=== PATIENT | male | born 1950 | race Two or more races ===

== ENCOUNTER 2016-09-05 16:50 | Inpatient (IN) | payer OTHER, MEDICARE ==
[~2016-09-05 16:50] MED LIST: ASPIRIN 325 MG TAB PO SCH
[2016-09-05] MEDS ORDERED: NS 1,000 ML IV ONE ×2 (17:02)
[2016-09-05] MEDS ORDERED: ADENOSINE 6 MG/2 ML SYR IV ONE ×2 (17:02)
[2016-09-05] MEDS ORDERED: SODIUM CHLORIDE 0.9% 3 ML FLUSH FLUSH PRN (17:02)
--- NOTE | 2016-09-05 17:11 | EDPRACDOC ---
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 UPON ARRIVAL TO ED PT'S HEART RATE WAS 181. WHEN I ENTERED THE ROOM PT'S HEART RATE WAS 100BPM, STATES IS FEELING SOME BETTER. Symptoms Started: Reports: Suddenly Relevant History: Reports: None Heart Rate (bpm): 181 Pulse is: Rapid Worsens with: Reports: Nothing Associated signs & symptoms: Reports: Chest pain (WARM SENSATION), Dyspnea, Other (LIGHTHEADED) Chest Pain Location: Reports: Substernal, Right Chest Pain Quality: Reports: Other (WARM SENSATION) Pain Radiation: Reports: None <Jeremy Barahona - Last Filed: 09/05/16 17:44> <Kalyan Alvarez - Last Filed: 09/05/16 18:04> - General Information Stated Complaint: CHEST PAIN Time Seen by Provider: 09/05/16 17:00 Allergies/Adverse Reactions: Allergies Allergy/AdvReac Type Severity Reaction Status Date / Time No Known Allergies Allergy Verified 09/05/16 17:03 ED Past Medical History - History Reviewed Yes Nurses notes reviewed and agree except as marked Travel Outside of [place] in the Last 3 Months?: No - Patient Medical History Cardiac History: Reports: Hypertension - Social Medical History ETOH: None Substance Abuse: None Lives With: Other Lives In: Home <Jeremy Barahona - Last Filed: 09/05/16 17:44> EDM Review of Systems - Review of Systems ROS Negative Except as Marked: Yes All systems reviewed and were negative except as marked Constitutional: No Symptoms Reported. negative: Fever, Chills, Weakness, Fatigue, Loss of Appetite Eyes: No Symptoms Reported. negative: Redness, Blurred Vision, Double Vision, Discharge, Pain, Light Sensitive, Photophobia Ears: No Symptoms Reported. negative: Pain, Hearing Loss, Drainage, Ear Pulling Throat: No Symptoms Reported. negative: Pain, Swelling Nose: No Symptoms Reported. negative: Congestion, Bleeding, Discharge, Injection, Swelling, Deformity, Ecchymosis, Tender, Abrasion, Laceration Mouth: No Symptoms Reported. negative: Pain, Drooling Respiratory: Shortness of Breath. negative: Barky Cough, Brassy Cough, Cough, Hemoptysis, Wheezing Cardiovascular: Chest Pain (WARM SENSATION), Palpitations. negative: Cyanosis, Edema, Orthopnea, PND, Syncope, Skin Mottling Gastrointestinal: No Symptoms Reported. negative: Pain, Constipation, Nausea, Vomiting, Diarrhea, Melena, Formula Intolerance Genitourinary: No Symptoms Reported. negative: Dysuria, Hematuria, Frequency, Discharge, Bleeding, Testicular Pain, Neurological: No Symptoms Reported. negative: Headache, Dizziness, Seizure, Numbness, Weakness, Speech Difficulty, Gait Difficulty Musculoskeletal: No Symptoms Reported. negative: Neck, Chestwall, Ribs, Back, Shoulder, Arm, Elbow, Forearm, Wrist, Hand, Pelvis, Hip, Femur, Knee, Leg, Ankle , Foot Integumentary: No Symptoms Reported. negative: Itching, Rash, Bruising, Wound Allergic/Immunologic: No Symptoms Reported. negative: Hives, Itching Hematologic: No Symptoms Reported. negative: Lymphadenopathy, Easy Bruising, Easy Bleeding Endocrine: No Symptoms Reported. negative: Weight Gain, Weight Loss Psychiatric: No Symptoms Reported. negative: Anxiety, Depression, Hallucinations, Insomnia, Suicidal <Jeremy Barahona - Last Filed: 09/05/16 17:44> - Physical Exam Constitutional: No apparent distress, Alert (Awake) Oriented to: Time, Person, Place Last recorded Vital Signs: Last Vital Signs Temp 98.2 F 09/05/16 16:59 Pulse 110 09/05/16 16:59 Resp 20 09/05/16 16:59 BP 178/86 09/05/16 16:59 Pulse Ox 96 09/05/16 16:59 Oxygen Pulse Oxygen Saturation 96 O2 Device Room Air Oxygen Flow Rate Fraction of Inspired Oxygen ( FIO2) - HEENT Head: Normal ( normocephalic) Eye Exam: Normal (PERRL, EOMI, Sclera white) Oropharynx: Normal (Pharynx:Moist without exudate,Gums-no swelling) Tympanic Membrane: Normal ENT EAC: Normal TMJ: Normal Nose: No Symptoms Reported (septum midline) Neck: Normal (FROM, trachea at midline) - Respiratory/Cardiovascular Respiratory: Normal - CTA (BBS clear to auscultation without adventitious sounds ) Cardiovascular: Tachycardia (112 MANUAL CHECK AT BEDSIDE) Respiratory/Cardiovascular Comment: SVT RESOLVED AT THIS TIME - GI Auscultation: Normal (NABS) Palpation: Normal (Soft,No rebound or guarding, non distended) Tenderness: Non tender Simon's Sign: Negative - Bladder: Normal - Musculoskeletal Back: Normal (Non-Tender) Extremities: Normal (Normal tone, Pulses 2+ No cyanosis or edema, FROM) - Integumentary Skin: Normal, Warm, Dry Lymphatics: Normal (no adenopathy) - Neurologic Memory Impaired: Normal Motor Function: Normal (Normal tone, Pulses 2+ No cyanosis or edema, FROM) Cranial Nerve: Normal (CN II-X11 intact sensation, strength 5/5) Cerebellar: Normal Mood Description: Normal Perception: Normal <Jeremy Barahona - Last Filed: 09/05/16 17:44> - Physical Exam Last recorded Vital Signs: Last Vital Signs Temp 98.2 F 09/05/16 16:59 Pulse 100 09/05/16 18:00 Resp 21 09/05/16 18:00 BP 140/82 09/05/16 18:00 Pulse Ox 95 09/05/16 18:00 Oxygen Pulse Oxygen Saturation 95 O2 Device Room Air Oxygen Flow Rate Fraction of Inspired Oxygen ( FIO2) <Kalyan Alvarez - Last Filed: 09/05/16 18:04> - Differential Diagnosis Atrial fibrillation, Atrial flutter, PSVT, Sinus tachycardia, WPW, Electrolyte disorder, Hyperthyroidism - Results 09/05/16 17:07 09/05/16 17:07 - EKG EKG #1 Initial EKG Time: 16:56 -: Yes EKG interpreted by me Rate: bpm: 181 [place]: Normal Rhythm: PSVT Block: None Hypertrophy: None ST: Normal EKG #2 Initial EKG Time: 17:24 -: Yes EKG interpreted by me Rate: bpm: 100 [place]: Normal Rhythm: NSR Block: None Hypertrophy: None ST: Normal - Diagnostic Imaging CXR Image interpreted by: Radiologist IMPRESSION: Low volume film without acute cardiopulmonary findings. <Jeremy Barahona - Last Filed: 09/05/16 17:44> - Results 09/05/16 17:07 09/05/16 17:07 WBC 8.7 xk/uL (3.8-10.8) 09/05/16 17:07 RBC 4.84 xM/uL (4.70-6.10) 09/05/16 17:07 Hgb 16.2 g/dL (14.0-18.0) 09/05/16 17:07 Hct 46.3 % (42-52) 09/05/16 17:07 MCV 96 fL (80-94) H 09/05/16 17:07 MCH 33.5 pg (27-32) H 09/05/16 17:07 MCHC 35.0 g/dl (33-36) 09/05/16 17:07 RDW 12.9 % (11.5-14.5) 09/05/16 17:07 Plt Count 218 xk/uL (130-400) 09/05/16 17:07 MPV 7.5 fL (7.4-10.4) 09/05/16 17:07 PT 9.8 SEC (9.2-11.2) 09/05/16 17:07 INR 1.0 09/05/16 17:07 APTT 25.9 SEC (22-35) 09/05/16 17:07 Sodium 140 mEq/L (137-146) 09/05/16 17:07 Potassium 3.5 mEq/L (3.5-5.1) 09/05/16 17:07 Chloride 101 mEq/L (98-107) 09/05/16 17:07 Carbon Dioxide 27 mMOL/L (22-33) 09/05/16 17:07 Anion Gap 16 mEq/L (8-16) 09/05/16 17:07 BUN 16 MG/DL (9-20) 09/05/16 17:07 Creatinine 0.90 MG/DL (0.66-1.25) 09/05/16 17:07 Estimated GFR (MDRD) > 60 mL/min (>=60) 09/05/16 17:07 Glucose 113 MG/DL (70-99) H 09/05/16 17:07 Calculated Osmolality 271 MOs/Kg (270-290) 09/05/16 17:07 Calcium 9.0 MG/DL (8.4-10.2) 09/05/16 17:07 Total Bilirubin 0.6 MG/DL (0.2-1.3) 09/05/16 17:07 AST 45 IU/L (17-59) 09/05/16 17:07 ALT 43 IU/L (21-72) 09/05/16 17:07 Alkaline Phosphatase 118 IU/L (50-160) 09/05/16 17:07 Troponin I < 0.01 ng/mL (<.04) 09/05/16 17:07 Sjx-F-Uyfdrjppbcu Pept 68 pg/mL (0-900) 09/05/16 17:07 Total Protein 8.3 G/DL (6.3-8.2) H 09/05/16 17:07 Albumin 4.6 G/DL (3.5-5.0) 09/05/16 17:07 Urine Color Yellow 09/05/16 17:13 Urine Clarity Clear 09/05/16 17:13 Urine pH 6.0 (5.0-8.0) 09/05/16 17:13 Ur Specific [place] 1.015 (1.003-1.035) 09/05/16 17:13 Urine Protein 2+ (NEG/TRACE) H 09/05/16 17:13 Urine Glucose (UA) Neg (NEGATIVE) 09/05/16 17:13 Urine Ketones Neg (NEGATIVE) 09/05/16 17:13 Urine Occult Blood Neg (NEG/TRACE) 09/05/16 17:13 Urine Nitrite Neg (NEGATIVE) 09/05/16 17:13 Urine Bilirubin Neg (NEGATIVE) 09/05/16 17:13 Urine Urobilinogen <2.0 MG/DL (0-1) 09/05/16 17:13 Ur Leukocyte Esterase Neg (NEGATIVE) 09/05/16 17:13 Urine RBC 0-2 (0-2) 09/05/16 17:13 Urine WBC 0-2 (0-2) 09/05/16 17:13 Urine Bacteria Few (NEG/FEW) 09/05/16 17:13 Hyaline Casts 5-10 (0-2) H 09/05/16 17:13 Urine Mucus Occ (NEG/OCC) 09/05/16 17:13 Lab Results 09/05/16 09/05/16 09/05/16 17:13 17:07 17:07 WBC 8.7 RBC 4.84 Hgb 16.2 Hct 46.3 MCV 96 H MCH 33.5 H MCHC 35.0 RDW 12.9 Plt Count 218 MPV 7.5 PT 9.8 INR 1.0 APTT 25.9 Sodium Potassium Chloride Carbon Dioxide Anion Gap BUN Creatinine Estimated GFR (MDRD) Glucose Calculated Osmolality Calcium Total Bilirubin AST ALT Alkaline Phosphatase Troponin I Bjw-[id number]-Ocwwxlqwktf Pept Total Protein Albumin Urine Color Yellow Urine Clarity Clear Urine pH 6.0 Ur Specific [place] 1.015 Urine Protein 2+ H Urine Glucose (UA) Neg Urine Ketones Neg Urine Occult Blood Neg Urine Nitrite Neg Urine Bilirubin Neg Urine Urobilinogen <2.0 Ur Leukocyte Esterase Neg Urine RBC 0-2 Urine WBC 0-2 Urine Bacteria Few Hyaline Casts 5-10 H Urine Mucus Occ 09/05/16 17:07 WBC RBC Hgb Hct MCV MCH MCHC RDW Plt Count MPV PT INR APTT Sodium 140 Potassium 3.5 Chloride 101 Carbon Dioxide 27 Anion Gap 16 BUN 16 Creatinine 0.90 Estimated GFR (MDRD) > 60 Glucose 113 H Calculated Osmolality 271 Calcium 9.0 Total Bilirubin 0.6 AST 45 ALT 43 Alkaline Phosphatase 118 Troponin I < 0.01 Vot-O-Blwbirkhtke Pept 68 Total Protein 8.3 H Albumin 4.6 Urine Color Urine Clarity Urine pH Ur Specific [place] Urine Protein Urine Glucose (UA) Urine Ketones Urine Occult Blood Urine Nitrite Urine Bilirubin Urine Urobilinogen Ur Leukocyte Esterase Urine RBC Urine WBC Urine Bacteria Hyaline Casts Urine Mucus <Kalyan Alvarez - Last Filed: 09/05/16 18:04> <Jeremy Barahona - Last Filed: 09/05/16 17:44> - Departure Yes I personally saw and evaluated the patient. 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
[2016-09-05 17:26] LABS: MPV 7.5 fL (7.4-10.4)
[2016-09-05 17:28] LABS: LEUKOCYTES/URINE NEG (NEGATIVE); NITRITE/URINE NEG (NEGATIVE); RBC/URINE 0-2 (0-2); URINE OCCULT BLOOD NEG (NEG/TRACE); WBC/URINE 0-2 (0-2)
--- NOTE | 2016-09-05 17:28 | DIRPT ---
CLINICAL DATA: Chest pain and shortness of breath. EXAM: PORTABLE CHEST 1 VIEW COMPARISON: None. FINDINGS: 1715 hours. Low volume film. The lungs are clear wiithout focal pneumonia, edema, pneumothorax or pleural effusion. Cardiopericardial silhouette is at upper limits of normal for size. The visualized bony structures of the thorax are intact. Telemetry leads overlie the chest. IMPRESSION: Low volume film without acute cardiopulmonary findings. Electronically Signed By: Gurpreet Barber M.D. On: 09/05/2016 17:26
[2016-09-05 17:32] LABS: BLOOD UREA NITROGEN 16 MG/DL (9-20); CALCULATED OSMOLALITY 271 MOs/Kg (270-290); CHLORIDE 101 mEq/L (98-107); GLUCOSE 113 MG/DL (70-99); PARTIAL THROMB. TIME 25.9 SEC (22-35); SODIUM LEVEL 140 mEq/L (137-146); TOTAL PROTEIN 8.3 G/DL (6.3-8.2)
[2016-09-05] MEDS ORDERED: ASPIRIN 325 MG TAB PO ONE (17:44)
[2016-09-05] MEDS: LABETALOL 20 MG/4 ML SYRINGE IV ONE ×2 (17:49→17:53)
[2016-09-05 18:02] LABS: hTSH 1.57 uIU/mL (0.5-4.67)
[2016-09-05 18:08] LABS: SEG NEUTROPHIL 41 % (45-76)
[2016-09-05 18:09] LABS: TOTAL CELL COUNT 100
[2016-09-05] MEDS: SODIUM CHLORIDE 0.9% 3 ML FLUSH FLUSH SCH (18:30)
--- NOTE | 2016-09-05 19:28 | HISTPHYS ---
- Chief Complaint Chest pain - History of Present Illness PRIMARY CARE PROVIDER: Dr. Ana Maria Hoyt HPI: The patient is a 66-year-old man with hypertension who presents with acute chest pain. Had a similar episode 15 days ago but did not go to the doctor or hospital. Onset: Today around noon. Duration: intermittent. Location: right upper chest. Radiation: none. Character: 8/10. Heaviness. Alleviated by: Nothing. Exacerbated by: Nothing. Associated Symptoms: Shortness of breath. Diaphoresis. Palpitations - felt like heart was racing. Whenever he is lying down, his neck and back hurt, is a chronic issue. Has abdominal pain in RLQ that is chronic for 2 years; has had it investigated but nothing was found. No nausea, vomiting, diarrhea, constipation, or bloody stool. Treatments: none at home except usual medication. - Medical History Cardiac History: Reports: Hypertension GI/ History: Reports: [facility] GI Yes/No Other (Chronic abdominal pain of unknown etiology.) Psychological History: Denies: Depression - Surgical History Reports: Other (No surgery.) - Medictions/Allergies Allergies No Known Allergies Allergy (Verified 09/05/16 17:03) Current Medication List: Reviewed Home Medications Valsartan/Hydrochlorothiazide [Valsartan-Hctz 320-25 mg Tab] 1 each PO DAILY 09/21 - Family History Reports: Other (Parents and grandparents of unknown causes. No other family history.). Denies: Cardiac Disorders - Social History Travel Outside of [place] in the Last 3 Months?: No Smoking Status: Never smoker Social History: Denies: Alcohol Use, Substance Use Disorder - Review of Systems GENERAL: No Fever, chills. Positive for diaphoresis. Positive for fatigue/ malaise. HEENT: No ear pain or discharge. No nasal discharge or bleeding. No throat pain or swelling. No eye pain or eye redness. RESPIRATORY: No cough, wheezing. Positive for shortness of breath. CARDIOVASCULAR: Chest pain and palpitations. GI: No nausea, vomiting, diarrhea, constipation, or bloody stool. NEUROLOGICAL: No headache or focal weakness. INTEGUMENT: no rashes, itching, or lesions. LYMPHATIC SYSTEM: no lymph node swelling or pain. MUSCULOSKELETAL: no pain or joint swelling. GENITOURINARY: No dysuria or hematuria. ENDOCRINE: No polyuria or polydipsia. HEME: No chronic anemia, bleeding, or easy bruising. - Physical Exam Vital Signs: Initial Vitals Temperature 98.2 F 09/05/16 16:59 Pulse Rate 110 09/05/16 16:59 Respiratory Rate 20 09/05/16 16:59 Blood Pressure 178/86 09/05/16 16:59 Pulse Oxygen Saturation 96 09/05/16 16:59 Vital Signs - 24 hr 09/05/16 09/05/16 09/05/16 16:59 17:21 17:45 Temperature 98.2 F Pulse Rate 110 104 181 H Respiratory 20 18 Rate Blood Pressure 178/86 178/103 H Pulse Oxygen 96 94 Saturation 09/05/16 09/05/16 09/05/16 17:46 18:00 18:57 Temperature Pulse Rate 110 100 98 Respiratory 21 20 Rate Blood Pressure 140/82 148/76 Pulse Oxygen 95 93 Saturation Weight: 89.8 kg Height: 5 feet 6 inches BMI: 32 - Other Exam Other Exam Findings: GENERAL: Ill-appearing, well nourished, no acute distress. HEENT: Normocephalic, atraumatic; pupils equal and round. Nares patent, without discharge or bleeding. No oropharyngeal lesions or erythema. Mucous membranes are dry. NECK: is supple, no masses, trachea midline. RESPIRATORY: Clear to auscultation bilaterally. Chest wall movements are symmetric. No use of accessory muscles to breathe. No wheezing, rales, rhonchi. CARDIOVASCULAR: Normal S1, S2. Slight 2/6 murmur at right upper sternal border. No rubs, or gallops. PMI non-displaced. Carotids: no carotid bruits. No bradycardia or tachycardia. DP pulses 2+ bilaterally. No tenderness to palpation of chest wall. GI: soft, non-distended, normal active bowel sounds. No hepatosplenomegaly. Mild right lower quadrant tenderness. INTEGUMENT: Clean, dry, and intact. No rashes. No lesions. MUSCULOSKELETAL: Moving all extremities. No cyanosis. No clubbing. Edema: none bilaterally. NEUROLOGICAL: Cranial nerves 2-12 grossly intact. Motor 5/5 throughout. Reflexes : 2+ bilaterally. Babinski: toes downgoing bilaterally. Intact Finger to nose. Sensory grossly intact to light touch. Intact rapid alternating movements bilaterally. No pronator drift. PSYCHIATRIC: Fully oriented. Normal and appropriate affect. LYMPHATIC: No cervical lymphadenopathy. No supraclavicular lymphadenopathy. - Lab Results Laboratory Results - last 24 hr 09/05/16 09/05/16 09/05/16 17:07 17:07 17:07 WBC 8.7 RBC 4.84 Hgb 16.2 Hct 46.3 MCV 96 H MCH 33.5 H MCHC 35.0 RDW 12.9 Plt Count 218 MPV 7.5 Neut % (Auto) Cancelled Lymph % (Auto) Cancelled [place] % (Auto) Cancelled Eos % (Auto) Cancelled Baso % (Auto) Cancelled Absolute Neuts (auto) Cancelled Absolute Lymphs (auto) Cancelled Seg Neuts % (Manual) 41 L Band Neutrophils % 0 Lymphocytes % (Manual) 59 H Absolute Neutrophils 3.57 Absolute Lymphocytes 5.13 H Platelet Estimate Plt clumps present RBC Morphology Norm PT 9.8 INR 1.0 APTT 25.9 Sodium 140 Potassium 3.5 Chloride 101 Carbon Dioxide 27 Anion Gap 16 BUN 16 Creatinine 0.90 Estimated GFR (MDRD) > 60 Glucose 113 H Calculated Osmolality 271 Calcium 9.0 Total Bilirubin 0.6 AST 45 ALT 43 Alkaline Phosphatase 118 Troponin I < 0.01 Bow-T-Qqfxuojkzbe Pept 68 Total Protein 8.3 H Albumin 4.6 TSH 1.57 Urine Color Urine Clarity Urine pH Ur Specific [place] Urine Protein Urine Glucose (UA) Urine Ketones Urine Occult Blood Urine Nitrite Urine Bilirubin Urine Urobilinogen Ur Leukocyte Esterase Urine RBC Urine WBC Urine Bacteria Hyaline Casts Urine Mucus 09/05/16 17:13 WBC RBC Hgb Hct MCV MCH MCHC RDW Plt Count MPV Neut % (Auto) Lymph % (Auto) [place] % (Auto) Eos % (Auto) Baso % (Auto) Absolute Neuts (auto) Absolute Lymphs (auto) Seg Neuts % (Manual) Band Neutrophils % Lymphocytes % (Manual) Absolute Neutrophils Absolute Lymphocytes Platelet Estimate RBC Morphology PT INR APTT Sodium Potassium Chloride Carbon Dioxide Anion Gap BUN Creatinine Estimated GFR (MDRD) Glucose Calculated Osmolality Calcium Total Bilirubin AST ALT Alkaline Phosphatase Troponin I Jrl-V-Jcpyhesugdk Pept Total Protein Albumin TSH Urine Color Yellow Urine Clarity Clear Urine pH 6.0 Ur Specific [place] 1.015 Urine Protein 2+ H Urine Glucose (UA) Neg Urine Ketones Neg Urine Occult Blood Neg Urine Nitrite Neg Urine Bilirubin Neg Urine Urobilinogen <2.0 Ur Leukocyte Esterase Neg Urine RBC 0-2 Urine WBC 0-2 Urine Bacteria Few Hyaline Casts 5-10 H Urine Mucus Occ - Diagnostic Findings DIAGNOSTIC DATA: EKG #1: 181 beats per minute. Supraventricular tachycardia. ST and T-wave abnormality, consider inferior ischemia. ST depressions in leads 1, 2, V3, V4, V5, and V6. Reviewed EKG personally. EKG #2: 100 beats per minute. Normal sinus rhythm. ST depressions have resolved. Reviewed EKG personally. IMAGING: Chest x-ray, viewed personally: EXAM: PORTABLE CHEST 1 VIEW COMPARISON: None. FINDINGS: 1715 hours. Low volume film. The lungs are clear wiithout focal pneumonia, edema, pneumothorax or pleural effusion. Cardiopericardial silhouette is at upper limits of normal for size. The visualized bony structures of the thorax are intact. Telemetry leads overlie the chest. IMPRESSION: Low volume film without acute cardiopulmonary findings. - Assessment (1) SVT (supraventricular tachycardia) I47.1 - SUPRAVENTRICULAR TACHYCARDIA Acute Present on Admission: Yes Intermittent. One episode noted in the emergency department with rate of 181 bpm. Plan: Continue to monitor with telemetry. Correct electrolytes as needed. Further treatment and evaluation depending on course. Consulted plastic products sales representative, Dr. Rodrgiues. (2) Chest pain R07.9 - CHEST PAIN, UNSPECIFIED Acute Present on Admission: Yes Plan: Obtain cardiac enzymes x 3. Place patient on telemetry. Give patient oxygen, aspirin. Give nitroglycerin, and morphine as needed for chest pain. Give statin. Stress test has been ordered for the morning. Patient has been advised, if the stress test is negative, to follow up with the primary care provider for evaluation of other potential causes of the chest pain. (3) Essential (primary) hypertension I10 - ESSENTIAL (PRIMARY) HYPERTENSION Acute Present on Admission: Yes PLAN: Start beta-devin. Continue home ARB. (4) Palpitations R00.2 - PALPITATIONS Acute Present on Admission: Yes Likely from other episodes of SVT. Plan: Telemetry and cardiology consult. Case Care Discussed with: Patient, Family, Nursing Staff Total Time: 70 min
[2016-09-05] MEDS ORDERED: NITROGLYCERINE 0.4 MG TAB SL PRN (19:31)
[2016-09-05] MEDS ORDERED: METOPROLOL TARTRATE 50 MG TAB PO ONE (21:57)
[2016-09-05] MEDS ORDERED: MORPHINE 2 MG/ML INJECTION IV PRN (21:58)
[2016-09-05] MEDS ORDERED: BISACODYL 5 MG TAB PO PRN (22:00)
[2016-09-05] MEDS ORDERED: GUAIFEN 100 MG-DEXTROMETH 10 MG PER 5 ML PO PRN (22:00)
[2016-09-05] MEDS ORDERED: ATORVASTATIN 40 MG TAB PO SCH (22:00)
[2016-09-05] MEDS ORDERED: ONDANSETRON HCL 4 MG/2 ML VIAL IV PRN (22:00)
[2016-09-05] MEDS ORDERED: SIMETHICONE 80 MG TAB PO PRN (22:00)
[2016-09-05] MEDS ORDERED: ACETAMINOPHEN 325 MG/TAB TABLET PO PRN (22:00)
[2016-09-05] MEDS ORDERED: Docusate Sodium 100 MG CAP PO PRN (22:00)
[2016-09-05] MEDS ORDERED: Pharmacy Order Set Alert SCH (22:00)
[2016-09-05] MEDS ORDERED: Enoxaparin 1 mg per kg per dose SQ SCH (22:00)
[2016-09-05] MEDS ORDERED: PROMETHAZINE 25 MG/ML VIAL IV PRN (22:00)
[2016-09-05] MEDS ORDERED: TEMAZEPAM 15 MG CAP PO PRN (22:00)
[2016-09-05] MEDS ORDERED: SENNA CONCENTRATE TAB PO PRN (22:00)
[2016-09-05] MEDS ORDERED: BENZONATATE 100 MG PERLES PO PRN (22:00)
[2016-09-05] MEDS ORDERED: ACETAMINOPHEN 325 MG SUPP PR PRN (22:00)
[2016-09-05] MEDS: POTASSIUM CHLORIDE 20 MEQ TAB PO SCH (23:46)
[2016-09-05] MEDS: ENOXAPARIN 100 MG PFS SQ SCH (23:47)
[2016-09-06] MEDS ORDERED: Vaccine Screening Complete SCH (01:00)
[2016-09-06] MEDS: NITROGLYCERINE 2 % OINTMENT PACK TOP SCH ×2 (04:06→13:31)
[2016-09-06] MEDS: SODIUM CHLORIDE 0.9% 3 ML FLUSH FLUSH SCH (04:07)
[2016-09-06 06:26] VITALS: BMI 29.8
[2016-09-06 07:24] LABS: MPV 7.1 fL (7.4-10.4)
[2016-09-06 07:33] VITALS: TEMP 98.2
[2016-09-06 07:34] LABS: BLOOD UREA NITROGEN 14 MG/DL (9-20); CALCIUM 8.9 MG/DL (8.4-10.2); CALCULATED OSMOLALITY 275 MOs/Kg (270-290); CHLORIDE 105 mEq/L (98-107); GLUCOSE 115 MG/DL (70-99); SODIUM LEVEL 142 mEq/L (137-146)
[2016-09-06] MEDS ORDERED: ASPIRIN 325 MG TAB PO SCH (08:00)
[2016-09-06] MEDS ORDERED: HYDROCHLOROTHIAZIDE 25 MG TAB PO SCH (09:00)
[2016-09-06] MEDS ORDERED: REGADENOSON 0.4 MG/5 ML SYRINGE IV ONE (09:00)
[2016-09-06] MEDS ORDERED: VALSARTAN 160 MG TAB PO SCH (09:00)
[2016-09-06] MEDS ORDERED: SODIUM CHLORIDE 0.9% 10 ML FLUSH FLUSH ONE (09:00)
[2016-09-06] MEDS ORDERED: METOPROLOL (TOPROL-XL) 50 MG TAB PO SCH (09:00)
[2016-09-06] MEDS ORDERED: [UNRECOGNIZED DRUG - OTHER] PO SCH (09:00)
[2016-09-06] MEDS ORDERED: HYDROCHLOROTHIAZIDE PO SCH (09:00)
[2016-09-06] MEDS ORDERED: VALSARTAN PO SCH (09:00)
--- NOTE | 2016-09-06 09:04 | PCM.CARDCO ---
Consultation Date: 09/06/16 Requesting Physician: Sammy Holguin (chest pain) Consulting Doctor: Emigdio Rodrigues Travel Outside of [place] in the Last 3 Months?: No Consultation Note: History of Present Illness: The pt is a 66 yo gentleman, followed by Dr. Ana Maria Hoyt on meds for HBP , no prior heart disease or DM. Pt is interviewed in stress lab through medical clerk - he speaks little [place]ian. Was well, working on project yesterday when experienced sudden onset substernal burning, radiated up into neck, associated with dyspnea and mild lightheadedness, no nausea, diaphoresis , syncope or near-syncope. Prompted eval in ER, where he presented in narrow complex tachycardia, HR 180, resolved with adenosine with relief of symptoms. No prior episodes. No hx limiting exertional chest discomfort. Coronary risks: HBP only, no DM, dyslipidemia, FH, or smoking. Past Medical History: HBP on meds; no DM Allergies No Known Allergies Allergy (Verified 09/05/16 22:01) Home Medications Valsartan/Hydrochlorothiazide [Valsartan-Hctz 320-25 mg Tab] 1 each PO DAILY 09/21 Family History: no heart disease Social History: Traveled outside the [place] in the last 3 months? No Never smoker. Does not drink alcohol. , lives with . She has children by prior marriage. He has none. Review of Systems: 10 system ROS, nothing in addition: no TIA/CVA sx. Physical Examination: Temperature: 98.2 F (09/06/16 07:32)HR: 66 (09/06/16 07:32)RR: 18 (09/06/16 07: 32)BP: 108/54 (09/06/16 07:32) SAT:96 (09/06/16 07:32) [] Physical Exam GEN: age appropriate, overweight, in NAD VS: as above HEENT: neck veins flat, carotids normal, no bruits CHEST: clear COR: Regular rhythm, soft ejection murmur. No gallop ABD: Soft, nontender EXTREM: RR, rad/PT 2+ bilat, no edema SKIN: Warm and dry NEURO: Alert, no focal deficit or tremor LAB/DI: [] Laboratory Tests 09/05/16 09/05/16 09/05/16 17:07 17:07 17:07 WBC 8.7 Hgb 16.2 Hct 46.3 Plt Count 218 INR 1.0 Sodium 140 Potassium 3.5 Chloride Carbon Dioxide BUN Creatinine 0.90 Estimated GFR (MDRD) > 60 Total Bilirubin 0.6 AST 45 ALT 43 Alkaline Phosphatase 118 Troponin I < 0.01 Triglycerides Cholesterol LDL Cholesterol, Calc HDL Cholesterol TSH 1.57 09/05/16 09/05/16 09/06/16 20:35 23:06 06:47 WBC Hgb Hct Plt Count INR Sodium 142 Potassium 4.7 D Chloride 105 Carbon Dioxide 31 BUN 14 Creatinine 1.00 Estimated GFR (MDRD) > 60 Total Bilirubin AST ALT Alkaline Phosphatase Troponin I 0.16 0.12 Triglycerides 457 H Cholesterol 199 LDL Cholesterol, Calc Not Reportable HDL Cholesterol 33.0 L TSH 09/06/16 06:47 WBC Hgb Hct Plt Count INR Sodium Potassium Chloride Carbon Dioxide BUN Creatinine Estimated GFR (MDRD) Total Bilirubin AST ALT Alkaline Phosphatase Troponin I 0.05 Triglycerides Cholesterol LDL Cholesterol, Calc HDL Cholesterol TSH EKG adm yesterday: regular SVT, probably AV ej re-entry, with diffuse non= specific mild upsloping ST depression. EKG normal after conversion with adenosine. TM perfusion stress test: 10 METS, no sx or scintigraphic ischemia, no exertional arrhythmia Echo: benign: normal chamber sizes and biventricular function; mild TR, high normal PA pressure, minimal aortic sclerosis, no valvular heart disease IMPRESSION: stable CV status - favorable prognosis parox supraventricular tachycardia - isolated episode HBP appears adequately controlled on valsartan/HCT - Recommendations REC: ok to discharge, with addition of metoprolol succinate (or tartrate) to his regimen - will arrange f/u with Dr. Tavarez in 6-8 weeks, for Greek skills.
[2016-09-06] MEDS ORDERED: SESTAMIBI 8 MCI V IV ONE (09:35)
[2016-09-06 12:15] VITALS: BP 113/61
[2016-09-06] MEDS: ENOXAPARIN 100 MG PFS SQ SCH (12:18)
--- NOTE | 2016-09-06 13:08 | PCM.STRESS ---
TREADMILL MYOCARDIAL PERFUSION STRESS TEST DATE OF PROCEDURE: 09/06/16 INDICATION: Chest discomfort with paroxysmal supraventricular tachycardia- ND ruled out RESTING DATA: HR 71 B/P 140/84 Chest clear Cor: Regular rhythm, no murmur or gallop RESTING EKG: [NSR] normal tracing PROTOCOL: Approx 8 mCi of technetium-99m pyrophosphate (Cardiolyte) was injected intravenously and tomograhic imaging performed at rest. An hour later, the patient performed treadmilll exericse on a Andreas protocol to a level of 10 METS, achieveing a peak heart rate of 130 per minute, 85 percent of predicted maximum. BP leeanna normally to 164/80. At peak exercise, an additional 25 mCi of Cardiolyte was injected and tomographic imaging repeated. Test stopped because of fatigue and target heart rate achieved.. No chest pain. STRESS EKG: Rhythm: Sinus. ST-T changes: None MYOCARDIAL PERFUSION IMAGING: Rotational display of raw projection data documents [stable pt position during imaging]. [There is a high right hemidiaphragm and prominent hepatic uptake]. [Clear potential for attenuation artifact is suggested]. There is minimally decreased count density anteroseptal wall at mid-ventricular level on both rest and stress. No significant defects or stress-induced hypoperfusion demonstrated. Gated imaging shows normal wall thickening inall segments with normal ESV of 28 ml and LVEF of 68% IMPRESSION: (1) Functional capacity is good. 10 METS (2) Normal resting left ventricular size and function, with end-systolic volume of 28 ml and ejection fraction of 68 %. (3) [No clinical or scintigraphic evidence of ischemia at target HR] Negative Treadmill perfusion stress test for ischemia or exertional arrhythmia.
[2016-09-06 14:26] VITALS: PULSE 70
--- NOTE | 2016-09-06 14:38 | PCM.DCS92 ---
- Final/Secondary Discharge Diagnosis (1) Chest pain Acute R07.9 - CHEST PAIN, UNSPECIFIED Present on Admission: Yes precordial chest pain R07.2 - Precordial pain Comment: Plan: Obtain cardiac enzymes x 3. Place patient on telemetry. Give patient oxygen, aspirin. Give nitroglycerin, and morphine as needed for chest pain. Give statin. Stress test has been ordered for the morning. Patient has been advised, if the stress test is negative, to follow up with the primary care provider for evaluation of other potential causes of the chest pain. (2) Essential (primary) hypertension Acute I10 - ESSENTIAL (PRIMARY) HYPERTENSION Present on Admission: Yes Comment: PLAN: Start beta-devin. Continue home ARB. (3) Palpitations Acute R00.2 - PALPITATIONS Present on Admission: Yes Comment: Likely from other episodes of SVT. Plan: Telemetry and cardiology consult. (4) SVT (supraventricular tachycardia) Acute I47.1 - SUPRAVENTRICULAR TACHYCARDIA Present on Admission: Yes Comment: Intermittent. One episode noted in the emergency department with rate of 181 bpm. Plan: Continue to monitor with telemetry. Correct electrolytes as needed. Further treatment and evaluation depending on course. 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 Discharge Disposition: Home Discharge Condition: Stable Cognitive Discharge Status: Unimpaired Fuctional Discharge Status: Independent Physician Follow up/Referrals: Alejandro Hoyt MD [Primary Care Provider] - One Week New Prescriptions: Metoprolol Succinate (XL) [Toprol Xl] 50 mg PO DAILY #30 tablet Discharge Home Medication List Valsartan/Hydrochlorothiazide [Valsartan-Hctz 320-25 mg Tab] 1 each PO DAILY 09/21 [History Confirmed 09/05/16] Metoprolol Succinate (XL) [Toprol Xl] 50 mg PO DAILY #30 tablet 09/06/16 [Rx] New Discharge Medications (Rx) Metoprolol Succinate (XL) [Toprol Xl] 50 mg PO DAILY #30 tablet 09/06/16 [Rx] O2 Device: Room Air Diet at Discharge: As Tolerated, Low Salt Activity: As Tolerated, No Heavy Lifting (nothing over 30 lbs), No Driving ( while using pain medications) Call Office For: Worsening Symptoms, Fever over 100.5, Pain Uncontrolled By Meds - DC Summary Notes Hospital Course Note:: Discharge summary on patient named LUIS WALSH admitted to [facility] on 09/05/16 by Sammy Holguin MD. Date of discharge is []. The patient was admitted under observation and serial cardiac enzymes and EKGs were obtained. The patient ruled out for myocardial infarction by serial enzymes and EKGs. The patient then underwent a stress test. The stress test showed no evidence of reversible ischemia. The patient is stable for discharge home. Metoprolol was added for blood pressure control please see discharge orders for dosing Total Time: 45 min Code: 42630 (>30min.) - Physical Exam Vital Signs: Last Vital Signs Temp 98.2 F 09/06/16 12:00 Pulse 70 09/06/16 14:25 Resp 18 09/06/16 12:00 BP 113/61 09/06/16 12:00 Pulse Ox 95 09/06/16 12:00 Oxygen Pulse Oxygen Saturation 95 O2 Device Nasal Cannula Oxygen Flow Rate 2 Fraction of Inspired Oxygen ( FIO2) Constitutional: No apparent distress, Alert (Awake) Oriented to: Time, Person, Place - HEENT Head: Normal ( normocephalic) Eye: Normal (PERRL, EOMI, Sclera white) Oropharynx: Normal (Pharynx:Moist without exudate,Gums-no swelling) Tympanic Membrane: Normal ENT EAC: Normal TMJ: Normal Nose: No Symptoms Reported (septum midline) - Respiratory/Cardiovascular Respiratory: Normal - CTA (BBS clear to auscultation without adventitious sounds ) Cardiovascular: Tachycardia (112 MANUAL CHECK AT BEDSIDE) - GI Auscultation: Normal (NABS) Palpation: Normal (Soft,No rebound or guarding, non distended) Tenderness: Non tender Simon's Sign: Negative - Musculoskeletal Back: Normal (Non-Tender) Extremities: Normal (Normal tone, Pulses 2+ No cyanosis or edema, FROM) - Integumentary Skin: Normal, Warm, Dry Lymphatics: Normal (no adenopathy) - Neurologic Memory Impaired: Normal Cerebellar: Normal Mood Description: Normal Perception: Normal - Other Exam Other Exam Findings: Laboratory Results - last 24 hr 09/05/16 09/05/16 09/05/16 17:07 17:07 17:07 WBC 8.7 RBC 4.84 Hgb 16.2 Hct 46.3 MCV 96 H MCH 33.5 H MCHC 35.0 RDW 12.9 Plt Count 218 MPV 7.5 Neut % (Auto) Cancelled Lymph % (Auto) Cancelled Vilas % (Auto) Cancelled Eos % (Auto) Cancelled Baso % (Auto) Cancelled Absolute Neuts (auto) Cancelled Absolute Lymphs (auto) Cancelled Seg Neuts % (Manual) 41 L Band Neutrophils % 0 Lymphocytes % (Manual) 59 H Absolute Neutrophils 3.57 Absolute Lymphocytes 5.13 H Platelet Estimate Plt clumps present RBC Morphology Norm PT 9.8 INR 1.0 APTT 25.9 Sodium 140 Potassium 3.5 Chloride 101 Carbon Dioxide 27 Anion Gap 16 BUN 16 Creatinine 0.90 Estimated GFR (MDRD) > 60 Glucose 113 H Calculated Osmolality 271 Calcium 9.0 Magnesium Total Bilirubin 0.6 AST 45 ALT 43 Alkaline Phosphatase 118 Creatine Kinase Troponin I < 0.01 Ier-E-Xdxcfrmdnwo Pept 68 Total Protein 8.3 H Albumin 4.6 Triglycerides Cholesterol LDL Cholesterol, Calc VLDL Cholesterol, Calc HDL Cholesterol Cholesterol/HDL Ratio TSH 1.57 Urine Color Urine Clarity Urine pH Ur Specific Lindsay Urine Protein Urine Glucose (UA) Urine Ketones Urine Occult Blood Urine Nitrite Urine Bilirubin Urine Urobilinogen Ur Leukocyte Esterase Urine RBC Urine WBC Urine Bacteria Hyaline Casts Urine Mucus 09/05/16 09/05/16 09/05/16 17:07 17:13 20:35 WBC RBC Hgb Hct MCV MCH MCHC RDW Plt Count MPV Neut % (Auto) Lymph % (Auto) Vilas % (Auto) Eos % (Auto) Baso % (Auto) Absolute Neuts (auto) Absolute Lymphs (auto) Seg Neuts % (Manual) Band Neutrophils % Lymphocytes % (Manual) Absolute Neutrophils Absolute Lymphocytes Platelet Estimate RBC Morphology PT INR APTT Sodium Potassium Chloride Carbon Dioxide Anion Gap BUN Creatinine Estimated GFR (MDRD) Glucose Calculated Osmolality Calcium Magnesium 2.00 Total Bilirubin AST ALT Alkaline Phosphatase Creatine Kinase Troponin I 0.16 Miu-V-Waxplcjbdqh Pept Total Protein Albumin Triglycerides Cholesterol LDL Cholesterol, Calc VLDL Cholesterol, Calc HDL Cholesterol Cholesterol/HDL Ratio TSH Urine Color Yellow Urine Clarity Clear Urine pH 6.0 Ur Specific Lindsay 1.015 Urine Protein 2+ H Urine Glucose (UA) Neg Urine Ketones Neg Urine Occult Blood Neg Urine Nitrite Neg Urine Bilirubin Neg Urine Urobilinogen <2.0 Ur Leukocyte Esterase Neg Urine RBC 0-2 Urine WBC 0-2 Urine Bacteria Few Hyaline Casts 5-10 H Urine Mucus Occ 09/05/16 09/06/16 09/06/16 23:06 06:47 06:47 WBC RBC Hgb Hct MCV MCH MCHC RDW Plt Count MPV Neut % (Auto) Lymph % (Auto) Vilas % (Auto) Eos % (Auto) Baso % (Auto) Absolute Neuts (auto) Absolute Lymphs (auto) Seg Neuts % (Manual) Band Neutrophils % Lymphocytes % (Manual) Absolute Neutrophils Absolute Lymphocytes Platelet Estimate RBC Morphology PT INR APTT Sodium 142 Potassium 4.7 D Chloride 105 Carbon Dioxide 31 Anion Gap 11 BUN 14 Creatinine 1.00 Estimated GFR (MDRD) > 60 Glucose 115 H Calculated Osmolality 275 Calcium 8.9 Magnesium Total Bilirubin AST ALT Alkaline Phosphatase Creatine Kinase 86 Troponin I 0.12 0.05 Hmf-C-Pfyjwjwlssg Pept Total Protein Albumin Triglycerides 457 H Cholesterol 199 LDL Cholesterol, Calc Not Reportable VLDL Cholesterol, Calc Not Reportable HDL Cholesterol 33.0 L Cholesterol/HDL Ratio Not Reportable TSH Urine Color Urine Clarity Urine pH Ur Specific Lindsay Urine Protein Urine Glucose (UA) Urine Ketones Urine Occult Blood Urine Nitrite Urine Bilirubin Urine Urobilinogen Ur Leukocyte Esterase Urine RBC Urine WBC Urine Bacteria Hyaline Casts Urine Mucus 09/06/16 06:47 WBC 5.7 RBC 4.55 L Hgb 15.1 Hct 43.9 MCV 96 H MCH 33.1 H MCHC 34.3 RDW 13.0 Plt Count 203 MPV 7.1 L Neut % (Auto) Lymph % (Auto) Vilas % (Auto) Eos % (Auto) Baso % (Auto) Absolute Neuts (auto) Absolute Lymphs (auto) Seg Neuts % (Manual) Band Neutrophils % Lymphocytes % (Manual) Absolute Neutrophils Absolute Lymphocytes Platelet Estimate RBC Morphology PT INR APTT Sodium Potassium Chloride Carbon Dioxide Anion Gap BUN Creatinine Estimated GFR (MDRD) Glucose Calculated Osmolality Calcium Magnesium Total Bilirubin AST ALT Alkaline Phosphatase Creatine Kinase Troponin I Mub-D-Iktumoopcvn Pept Total Protein Albumin Triglycerides Cholesterol LDL Cholesterol, Calc VLDL Cholesterol, Calc HDL Cholesterol Cholesterol/HDL Ratio TSH Urine Color Urine Clarity Urine pH Ur Specific Lindsay Urine Protein Urine Glucose (UA) Urine Ketones Urine Occult Blood Urine Nitrite Urine Bilirubin Urine Urobilinogen Ur Leukocyte Esterase Urine RBC Urine WBC Urine Bacteria Hyaline Casts Urine Mucus Exercise Cardiolite stress test: (1) Functional capacity is good. 10 METS (2) Normal resting left ventricular size and function, with end-systolic volume of 28 ml and ejection fraction of 68 %. (3) [No clinical or scintigraphic evidence of ischemia at target HR] Negative Treadmill perfusion stress test for ischemia or exertional arrhythmia.
[2016-09-07] MEDS ORDERED: FLU VACCINE (Afluria) 0.5 ML DOSE IM ONE (08:00)
[2016-09-07] MEDS ORDERED: PNEUMOCOCCAL 0.5 ML VIAL IM ONE (08:00)
--- NOTE | 2016-09-07 11:30 | CAPUECHO ---
INDICATION: SVT, CHEST PAIN HEIGHT: 167.6 cm (5 ft 6.0 in) WEIGHT: 83.9 kg (185.0 lbs) BP: 112/86 BSA: 1.100926 m MEASUREMENTS 2D RVIDd: 3.1 cm LVOT Diam: 2.0 cm LA Diam: 3.5 cm EF Biplane: 63.63 % LAESV MOD A4C: 89.6 ml LAESV MOD A2C: 51.0 ml LAESV Index (A-L): 36.70 ml/m M-MODE IVSd: 1.1 cm LVIDd: 5.5 cm LVPWd: 1.0 cm LVIDs: 3.5 cm EF(Teich): 64 % Ao Diam: 3.3 cm LA Diam: 3.6 cm DOPPLER MV E Venancio: 0.80 m/s MV A Venancio: 0.91 m/s MV PHT: 48.96 ms MVA By PHT: 4.49 cm LVOT Vmax: 1.12 m/s AV Vmax: 1.38 m/s JOSIAH Vmax, Pt: 2.53 cm TR Vmax: 2.48 m/s TR maxP mmHg RVSP: 36.86 mmHg FINDINGS ------- Procedure:2D images, m-mode, color and spectral Doppler were obtained and reviewed. ECG rhythm:Sinus rhythm. Study quality:This was a technically adequate study. Left Ventricle:The left ventricular size is normal. There is normal contractility throughout. LVEF 64%. The diastolic filling pattern indicates impaired relaxation. Right Ventricle:The right ventricle is normal in size and function. Left Atrium:The left atrium is normal in size. Right Atrium:The right atrium is normal in size and function. Septum normal and intact by color do ppler. Aortic Valve:The aortic valve is trileaflet with very mild aortic valve sclerosis, good mobility, no regurg. Mitral Valve:Normal appearing mitral valve. No mitral regurgitation. Tricuspid Valve:The tricuspid valve appears structurally normal. Mild tricuspid regurgitation present. The right ventricular systolic pressure, as measured by Doppler, is 37mmHg. Pulmonic Valve:The pulmonic valve is normal. Trace/mild (physiologic) pulmonic regurgitation. Aorta:The aortic root, ascending aorta and aortic arch appear normal. IVC:No views of IVC. TDS subcosytal sax and lax. Pericardium:There is a trivial pericardial effusion present posteriorly. CONCLUSIONS 1. Generally unremarkable 2D/Doppler echocardiographic study: - normal chamber sizes and biv entricular function - very mild aortic sclerosis, no significant valvular heart disease or s rogers Electronically Signed By: Emigdio Rodrigues MD-- Electronically Signed On: 11:11:02
--- NOTE | 2016-09-07 16:42 | CAPUEKG ---
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 Abnormal ECG Electronically Signed On 09-07-16 16:42:08 EST by Emigdio Rodrigues [email or web address] [id number]
== END 2016-09-06 15:32 | disposition home or self-care (01) | DRG 313 ==
LOC: ED 16:50 → PCU 18:24 → OBSVTOIN 19:31
PROVIDERS: ADMIT Internal Medicine; ATTEND Hospitalist
DX: R07.2 Precordial pain (principal); I10 Essential (primary) hypertension; I47.1 Supraventricular tachycardia; R00.2 Palpitations; Z79.899 Other long term (current) drug therapy
CPT/HCPCS: 36415; 71010; 78452; 80048; 80053; 80061; 81001; 82550; 83735; 83880; 84443; 84484; 85007; 85027; 85610; 85730; 93005; 93017; 93306; 96361; 96372; 96374; 99285; A4216; A9500; G0378; J1650; J2785; J3490